=== PATIENT | female | born 1995 | race Caucasian/White ===

== ENCOUNTER → 2016-07-24 | Outpatient (CLI) | payer BC ==
[~2016-07-24] MED LIST: NO HOME MEDICATIONS
== END ==
LOC: COL.RAD 10:55
DX: R10.2 Pelvic and perineal pain (principal)

== ENCOUNTER 2023-09-25 16:39 | Inpatient (IN) | payer BC ==
[2023-09-25] VITALS (16 sets, daily range): BP systolic 122–147; BP diastolic 69–94; PULSE 80–115; TEMP 98–98.6
[~2023-09-25] VITALS: Ht 170.2 cm; Wt 116.8 kg
--- NOTE | 2023-09-25 16:45 | NUR ---
PT ORIENTED TO ROOM AND CHANGED INTO GOWN. PT PLACED ON MONITORS. SVE 7-8/90/-1. PT FEELING STRONG CX EVERY 3-4 MINUTES. REGULAR MOVEMENT. NO LEAKING OF FLUID OR VAGINAL BLEEDING.
[2023-09-25] MEDS ORDERED: LR & Oxytocin 500 ML IV SCH (17:15)
[2023-09-25] MEDS ORDERED: LR 1,000 ML IV SCH (17:15)
[2023-09-25 17:29] LABS: BASO % 0.2 % (0.0-2.0); EOS # 0.1 K/mm3 (0.0-0.7); EOS % 0.5 % (0.0-4.0); GRAN # 9.5 K/mm3 (1.4-6.5); GRAN % 72.6 % (42.2-75.2); HEMOGLOBIN 11.7 g/dl (12.5-16.0); LYMPH # 2.7 K/mm3 (1.2-3.4); LYMPH % 20.9 % (20.0-51.0); MEAN CELL VOLUME 86 fl (80.0-100.0); MEAN CORPUSCULAR HEMOGLOBIN 29 pg (27-31); MEAN CORPUSCULAR HGB CONC 33 g/dl (33.0-37.0); MEAN PLATELET VOLUME 10.4 fl (7.4-10.4); MONO # 0.7 K/mm3 (0.1-0.6); MONO % 5.5 % (1.7-9.3); PLATELET COUNT 371 K/mm3 (130-400); REDCELL DISTRIBUTION WIDTH-CV 13.8 % (11.5-14.5)
[2023-09-25 17:31] LABS: HEMATOCRIT 35.1 % (37.0-47.0)
[2023-09-25] MEDS ORDERED: ROPivacaine PF 0.2% 200 ML IV ONE (17:34)
[2023-09-25] MEDS ORDERED: WELLBUTRIN SR150 M1 PO (17:34)
[2023-09-25] MEDS ORDERED: GLUCOPHAGE500 MG/TAB PO (17:35)
[2023-09-25] MEDS ORDERED: PRENATAL TABLET PO (17:36)
--- NOTE | 2023-09-25 17:51 | NUR ---
PT SITTING AT SIDE OF BED. O2 AND BP MONITORS ON. TEST DOSE AT 1751. PT TOLERATED PROCEEDURE WELL.
[2023-09-25] MEDS ORDERED: ePHEDrine 50 MG/10 ML VIAL IV PRN (18:15)
[2023-09-25] MEDS ORDERED: diphenhydrAMINE 25 MG CAP PO PRN (18:15)
[2023-09-25] MEDS ORDERED: Ondansetron 4 MG/2 ML VIAL IV PRN (18:15)
[2023-09-25] MEDS ORDERED: Naloxone 0.4 MG/ML VIAL IV PRN (18:15)
[2023-09-25] MEDS ORDERED: diphenhydrAMINE 50 MG/ML 1 ML VIAL IV PRN (18:15)
--- NOTE | 2023-09-25 20:15 | NUR ---
SROM FLUID CLEAR, SVE COMPLETE/ +2. PADS CHANGED. PT FEELING PRESSURE DR FIGUEROA NOTIIFIED TO COME FOR DELIVERY.
--- NOTE | 2023-09-25 20:35 | NUR ---
DR FIGUEROA HERE FOR DELIVERY. PT SET UP IN FOOT REST. PERICARE DONE.
--- NOTE | 2023-09-25 20:42 | NUR ---
[facility] DELIVERY FEMALE . BABY PLACED ON MOMS ABD, DRIED AND STIMULATED.
[2023-09-26] MEDS ORDERED: Mag/Al Hydrox/Simeth Susp 30 ML CUP PO PRN (00:30)
[2023-09-26] MEDS ORDERED: Naloxone 0.4 MG/ML VIAL IV PRN (00:30)
[2023-09-26] MEDS ORDERED: Phenylephrine/Mineral Oil/Petrolatum 57 GM TUBE RC PRN (00:30)
[2023-09-26] MEDS ORDERED: Ibuprofen 800 MG TAB PO SCH (00:30)
[2023-09-26] MEDS ORDERED: Measles/Mumps/Rubella Virus Vaccine Live w Diluent 0.5 ML VIAL SQ SCH (00:30)
[2023-09-26] MEDS ORDERED: Witch Hazel 50% Pads Bulk TUB TP PRN (00:30)
[2023-09-26] MEDS ORDERED: Acetaminophen 500 MG TAB PO SCH (00:30)
[2023-09-26] MEDS ORDERED: oxyCODONE 5 MG TAB PO PRN (00:30)
[2023-09-26 04:05] VITALS: BP 127/55; BP_SYST 55; PULSE 82; TEMP 98
[2023-09-26 07:00] VITALS: BP 142/88; PULSE 90; TEMP 98
[2023-09-26] MEDS ORDERED: MOTRIN 800800 MG/TAB PO (07:44)
[2023-09-26] MEDS ORDERED: Sennosides/Docusate 8.6-50 MG TAB PO SCH (08:00)
[2023-09-26] MEDS ORDERED: Loratadine 10 MG TAB PO PRN (09:00)
[2023-09-26 17:00] VITALS: BP 155/79; PULSE 93
[2023-09-26 19:00] VITALS: BP 116/61; PULSE 102; TEMP 98.2
--- NOTE | 2023-09-26 19:00 | NUR ---
Blood pressure cuff measured and changed to appropriate cuff size. Blood pressure 116/61 siting. Pt states that is more her normal blood presssure.
[2023-09-26] MEDS ORDERED: Magnes Hydrox (MOM) 80 MG/ML 30 ML CUP PO PRN (21:00)
[2023-09-26] MEDS ORDERED: traZODone 50 MG TAB PO PRN (21:00)
[2023-09-27 01:30] VITALS: BP 121/66; PULSE 94
[2023-09-27 09:31] VITALS: BP 136/81; PULSE 93; TEMP 98.7
== END 2023-09-27 12:05 | disposition home or self-care (01) | DRG 807 ==
LOC: LDRO 16:39 → LDR 17:06 → OB 09-26 01:30
PROVIDERS: ADMIT Obstetrics & Gynecology
PROC: 10E0XZZ Delivery of Products of Conception, External Approach (ICD-10-PCS; principal; 2023-09-25)
PROC: 0KQM0ZZ Repair Perineum Muscle, Open Approach (ICD-10-PCS; 2023-09-25)
DX: O69.81X0 Labor and delivery complicated by cord around neck, without compression, not applicable or unspecified (principal); Z37.0 Single live birth; Z3A.37 37 weeks gestation of pregnancy
CPT/HCPCS: J2590; J2795; J7120